=== PATIENT | female | born 1985 | race Caucasian/White ===

== ENCOUNTER 2016-08-20 18:50 | Inpatient (IN) | payer OTHER ==
[~2016-08-20] VITALS: Ht 167.6 cm; Wt 86.6 kg
[2016-08-20 21:31] LABS: ABSOLUTE BASOPHIL COUNT 0.1 /CUMM (0.0-0.2); ABSOLUTE EOSINOPHIL COUNT 0.1 /CUMM (0.0-0.7); ABSOLUTE GRANULOCYTE CT 13.6 /CUMM (1.4-6.5); ABSOLUTE LYMPH COUNT 2.7 /CUMM (1.2-3.4); ABSOLUTE MONOCYTE COUNT 0.7 /CUMM (0.10-0.60); BASOPHIL % 0.4 % (0.0-2.0); EOSINOPHIL % 0.4 % (0-5); GRANULOCYTE % 79.5 % (42.2-75.2); HEMATOCRIT 38.4 % (37-47); MEAN CORPUSCULAR HGB 30.5 PG (27.0-31.0); MEAN CORPUSCULAR HGB CONC 33.9 G/DL (33.0-37.0); MEAN CORPUSCULAR VOLUME 89.9 FL (81.0-99.0); MEAN PLATELET VOLUME 10.1 FL (7.4-10.4); PLATELET COUNT 258 /CUMM (130-400); RBC DISTRIBUTION WIDTH 13.3 % (11.5-14.5); RED BLOOD CELL CT 4.27 /CUMM (4.20-5.40); WHITE BLOOD CELL COUNT 17.1 /CUMM (4.8-10.8)
--- NOTE | 2016-08-20 22:19 | Labor & Delivery Summary ---
Delivery Summary Vaginal Delivery: Vaginal: vertex Episiotomy/Lacerations: Repair: 3O in layers in layers Anesthesia: Local Placenta: Placenta: spontanteous, normal, 3 vessel, nuchal cord (x_), CORD 1 NOT REDUCIBLE CLAMPED AND CUT FOR DELIVERY Anesthesia: block Baby's Weight: 6 6 Additional Comments: with meconium over a second-degree laceration suctioned with bulb after cord was clamped 2 and cut and rules examiner in route for meconium. Placenta by CCT intact secondary laceration repaired in layers with 30 under local rectum and cervix free of sutures post repair. Vision is Rh+
--- NOTE | 2016-08-20 22:25 | History & Physical ---
General Information and HPI MD Statement: I have seen and personally examined SONNYMEREDITH and documented this H&P. The patient is a 31 year old female at 38 [] weeks and [] days gestation who presented with a chief complaint of labor []. History of Present Illness: 31-year-old 1 para 0 at 38 weeks gestation presents to childbirth center at 3 cm she quickly progressed to 4-5 minutes fully dilated rupture of membranes revealed thick meconium. 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 No Contractions: 3 minutes Patient for Induction? No Labs Blood Type & Rh: PositiveO Antibody Screen: Negative Hct/Hgb & Platelets #1: / Hct/Hgb & Platelets #2: Unavailable Rubella: Immune VDRL #1: Nonreactive VDRL #2: Nonreactive HbsAg: Negative HIV #1: Negative HIV #2 NOTAvailable 1 Hr P Group B Strep: NEG Initial Ultrasound: NL Anatomy Ultrasound: NL Genetic Testing: NEG Assessment/Plan As Ranked By This Provider Problem List: 1. Core Measures/Miscellaneous Venous Thromboembolism VTE Risk Factors: No Risk Factors VTE Contraindications: No Contraindications VTE Diagnosis: No Beta Erasto Is Beta Erasto a Home Med? No Antibiotics Is Patient on Antibiotics? No
[2016-08-21 00:27] VITALS: BP 134/77
[2016-08-21 07:54] LABS: ABSOLUTE BASOPHIL COUNT 0.1 /CUMM (0.0-0.2); ABSOLUTE EOSINOPHIL COUNT 0.1 /CUMM (0.0-0.7); ABSOLUTE GRANULOCYTE CT 13.9 /CUMM (1.4-6.5); ABSOLUTE LYMPH COUNT 2.5 /CUMM (1.2-3.4); ABSOLUTE MONOCYTE COUNT 0.8 /CUMM (0.10-0.60); BASOPHIL % 0.5 % (0.0-2.0); EOSINOPHIL % 0.4 % (0-5); GRANULOCYTE % 79.8 % (42.2-75.2); HEMATOCRIT 34.5 % (37-47); MEAN CORPUSCULAR HGB 30.7 PG (27.0-31.0); MEAN CORPUSCULAR VOLUME 90.1 FL (81.0-99.0); MEAN PLATELET VOLUME 10.3 FL (7.4-10.4); PLATELET COUNT 212 /CUMM (130-400); RBC DISTRIBUTION WIDTH 12.9 % (11.5-14.5); RED BLOOD CELL CT 3.83 /CUMM (4.20-5.40); WHITE BLOOD CELL COUNT 17.4 /CUMM (4.8-10.8)
--- NOTE | 2016-08-22 10:03 | PN- Post Delivery/GYN ---
Subjective Subjective: no c/o Review of Systems: neg Objective Last 24 Hrs of Vital Signs/I&O vss Physical Exam: ff ext nt Assessment/Plan Assessment/Plan ppd2 stable circ discharge Problem List: 1.
[2016-08-22] MEDS ORDERED: IBUPROFEN800 M1 PO (10:05)
== END 2016-08-22 12:00 | DRG 775 ==
LOC: CBCO 18:50 → GNO 20:37
PROVIDERS: Specialist; ADMIT Obstetrics & Gynecology
PROC: 0KQM0ZZ Repair Perineum Muscle, Open Approach (ICD-10-PCS; principal; 2016-08-20)
PROC: 10E0XZZ Delivery of Products of Conception, External Approach (ICD-10-PCS; principal; 2016-08-20)
DX: O70.1 Second degree perineal laceration during delivery (principal); Z37.0 Single live birth; O69.81X0 Labor and delivery complicated by cord around neck, without compression, not applicable or unspecified; Z3A.38 38 weeks gestation of pregnancy
CPT/HCPCS: GNOP; GNOS; 36415; 80307; 81003; 88307; J1885; J7120

== ENCOUNTER 2018-01-25 04:38 | Inpatient (IN) | payer OTHER ==
[~2018-01-25] VITALS: Ht 167.6 cm; Wt 88.9 kg
[~2018-01-25 04:38] MED LIST: IBUPROFEN800 M1 PO
--- NOTE | 2018-01-25 05:20 | History & Physical Pre-Op ---
General Information and HPI MD Statement: I have seen and personally examined SONNYMEREDITH Rainey and documented this H&P. The patient is a 32 year old F who presented with a patient stated chief complaint of [contractions]. History of Present Illness: 32-year-old 2 para 1 complaining of contractions at 39 weeks presents to childbirth center 9 cm with contractions every 2 minutes patient denies rupture of membranes negative group B strep Allergies/Medications Allergies: Coded Allergies: penicillin G (08/20/16) Home Med list Ibuprofen 800 MG TABLET 800 MG PO Q6P PRN UTERINE CRAMPING Past History Surgical History Pertinent Surgical History: none Review of Systems Review of Systems: -13 point review of systems Exam & Diagnostic Data Physical Exam: white female in active labor HEENT anicteric Lungs clear Heart S1-S2 Gravid weight 3600 PELVIC 9CM VTX 0 STATION INTACT g Assessment/Plan Assessment/Plan: ASSESS TERM PLAN OBSERVE FOR As Ranked By This Provider Problem List: 1.
[2018-01-25 06:26] LABS: ABSOLUTE BASOPHIL COUNT 0.1 /CUMM (0.0-0.2); ABSOLUTE EOSINOPHIL COUNT 0.2 /CUMM (0.0-0.7); ABSOLUTE GRANULOCYTE CT 9.2 /CUMM (1.4-6.5); ABSOLUTE LYMPH COUNT 3.3 /CUMM (1.2-3.4); ABSOLUTE MONOCYTE COUNT 0.9 /CUMM (0.10-0.60); BASOPHIL % 0.5 % (0.0-2.0); EOSINOPHIL % 1.2 % (0-5); GRANULOCYTE % 67.3 % (42.2-75.2); HEMATOCRIT 36.5 % (37-47); MEAN CORPUSCULAR HGB 30.3 PG (27.0-31.0); MEAN CORPUSCULAR HGB CONC 33.7 G/DL (33.0-37.0); MEAN CORPUSCULAR VOLUME 90.1 FL (81.0-99.0); MEAN PLATELET VOLUME 10.3 FL (7.4-10.4); PLATELET COUNT 229 /CUMM (130-400); RBC DISTRIBUTION WIDTH 13.1 % (11.5-14.5); RED BLOOD CELL CT 4.05 /CUMM (4.20-5.40); WHITE BLOOD CELL COUNT 13.7 /CUMM (4.8-10.8)
--- NOTE | 2018-01-25 06:30 | Labor & Delivery Summary ---
Delivery Summary Vaginal Delivery: Vaginal: vertex Episiotomy/Lacerations: Episiotomy/Lacerations: 1ST DEGREE BLEEDING Repair: 2 0 Placenta: Placenta: normal, 3 vessel, SHORT CORD Anesthesia: LOCAL Additional Comments: with meconium viable male short hair on the perineum clamped 2 suction with bulb spontaneous cry. First-degree laceration leading 2 O in layers under local O+ placenta continuous cord traction intact. 7 lbs. 8 oz.
[2018-01-25 08:11] VITALS: BP 126/79
[2018-01-26 09:20] LABS: ABSOLUTE BASOPHIL COUNT 0 /CUMM (0.0-0.2); ABSOLUTE EOSINOPHIL COUNT 0.3 /CUMM (0.0-0.7); ABSOLUTE GRANULOCYTE CT 8.4 /CUMM (1.4-6.5); ABSOLUTE LYMPH COUNT 2.2 /CUMM (1.2-3.4); ABSOLUTE MONOCYTE COUNT 0.6 /CUMM (0.10-0.60); BASOPHIL % 0.3 % (0.0-2.0); EOSINOPHIL % 2.5 % (0-5); HEMATOCRIT 33.7 % (37-47); MEAN CORPUSCULAR HGB 30.5 PG (27.0-31.0); MEAN CORPUSCULAR HGB CONC 33.7 G/DL (33.0-37.0); MEAN CORPUSCULAR VOLUME 90.5 FL (81.0-99.0); PLATELET COUNT 181 /CUMM (130-400); RBC DISTRIBUTION WIDTH 13.4 % (11.5-14.5); RED BLOOD CELL CT 3.73 /CUMM (4.20-5.40); WHITE BLOOD CELL COUNT 11.5 /CUMM (4.8-10.8)
--- NOTE | 2018-01-26 11:13 | PN- Post Delivery/GYN ---
Subjective Subjective: NO COMPLAINTS Objective Last 24 Hrs of Vital Signs/I&O CPER PAPER CHART Physical Exam: PE THIN WF IN NAD ABD SOFT NT LOCHIA MINIMAL FUNDUS FIRM NT EXT -EDEMA Assessment/Plan Assessment/Plan ASSESS S/P PLAN CONT PPC
[2018-01-26] MEDS ORDERED: IBUPROFEN800 M1 PO (12:23)
== END 2018-01-26 14:50 | DRG 775 ==
LOC: CBCO 04:38 → GNO 04:55
PROVIDERS: Specialist
PROC: 10E0XZZ Delivery of Products of Conception, External Approach (ICD-10-PCS; principal; 2018-01-25)
PROC: 0HQ9XZZ Repair Perineum Skin, External Approach (ICD-10-PCS; principal; 2018-01-25)
DX: O70.0 First degree perineal laceration during delivery (principal); O69.3XX0 Labor and delivery complicated by short cord, not applicable or unspecified; Z3A.39 39 weeks gestation of pregnancy; Z37.0 Single live birth; Z88.0 Allergy status to penicillin
CPT/HCPCS: 36415; 81001; J7120